=== PATIENT | female | born 1955 | race American Indian/Alaskan Native ===

== ENCOUNTER 2016-06-29 12:49 | Outpatient (CLI) | payer BC ==
--- NOTE | 2016-06-29 15:59 | Mammography Report ---
BILATERAL DIGITAL SCREENING MAMMOGRAM with CAD: 06/29/16 12:49:00 CLINICAL: Routine screening. COMPARISON:06/06/15 FINDINGS: The breasts are almost entirely fatty. No new mass, architectural distortion or suspicious calcifications. IMPRESSION: No mammographic evidence of malignancy. BI-RADS CATEGORY: 2 -- Benign RECOMMENDATION: Routine mammographic screening in one year. COMMENT: Patient follow-up letters are generated by our [employer] application.
== END 2016-06-29 12:50 | disposition home or self-care (01) ==
LOC: SPVWC 12:49
PROVIDERS: ATTEND Family Medicine
DX: Z12.31 Encounter for screening mammogram for malignant neoplasm of breast (principal)
CPT/HCPCS: 77067; G0202

== ENCOUNTER 2017-07-05 09:36 | Outpatient (CLI) | payer BC ==
--- NOTE | 2017-07-08 11:35 | Mammography Report ---
BILATERAL DIGITAL SCREENING MAMMOGRAM with CAD: 07/05/17 09:36:00 CLINICAL: Routine screening. COMPARISON:06/29/16 FINDINGS: The breasts are almost entirely fatty. No mass, architectural distortion or suspicious calcifications. IMPRESSION: No mammographic evidence of malignancy. BI-RADS CATEGORY: 2 -- Benign RECOMMENDATION: Routine mammographic screening in one year. COMMENT: Patient follow-up letters are generated by our [employer] application.
== END 2017-07-05 09:37 | disposition home or self-care (01) ==
LOC: SPVWC 09:36
PROVIDERS: ATTEND Family Medicine
DX: Z12.31 Encounter for screening mammogram for malignant neoplasm of breast (principal)
CPT/HCPCS: 77067

== ENCOUNTER 2018-07-07 09:18 | Outpatient (CLI) | payer BC ==
--- NOTE | 2018-07-07 16:19 | Mammography Report ---
BILATERAL DIGITAL SCREENING MAMMOGRAM with CAD: 07/07/18 09:18:00 CLINICAL: Routine screening. COMPARISON:07/05/17 FINDINGS: The breasts are almost entirely fatty. No mass, architectural distortion or suspicious calcifications. IMPRESSION: No mammographic evidence of malignancy. BI-RADS CATEGORY: 2 -- Benign RECOMMENDATION: Routine mammographic screening in one year. COMMENT: Patient follow-up letters are generated by our [employer] application.
== END 2018-07-07 09:19 | disposition home or self-care (01) ==
LOC: SPVWC 09:18
PROVIDERS: ATTEND Family Medicine
DX: Z12.31 Encounter for screening mammogram for malignant neoplasm of breast (principal)
CPT/HCPCS: 77067

== ENCOUNTER 2019-07-08 09:50 | Outpatient (CLI) | payer BC ==
--- NOTE | 2019-07-08 16:04 | Mammography Report ---
DIGITAL SCREENING MAMMOGRAM WITH CAD, 07/08/2019 INDICATION: Routine screening mammography. TECHNIQUE: Digital bilateral 2D mammography was obtained in the craniocaudal and mediolateral obliq ue projections. This examination was interpreted with the benefit of Computer-Aided Detection analysi s. COMPARISON: 07/07/2018 and 07/05/2017 FINDINGS: Breast Density: The breasts are almost entirely fatty. There is no evidence of dominant mass, suspicious calcifications or architectural distortion in eithe r breast. IMPRESSION: No mammographic evidence of malignancy. Follow up recommendation: Routine yearly BI-RADS Category 2: Benign. A "normal" or negative report should not discourage follow up or biopsy of a clinically significant f inding. A written summary of these findings will be mailed to the patient. The patient will be entered into a mammography reporting system which will generate a reminder letter for the patient's next appointmen t at the appropriate interval. The [employer] recommends yearly mammograms starting at age 40 and continuing as l josue as a woman is in good health. Breast MRI is recommended for women with an approximate 20-25% or greater lifetime risk of breast cancer, including women with a strong family history of breast or ova lianne cancer or who have been treated for Hodgkin's disease. Signer Name: Onel Bowen MD Signed: 07/08/2019 4:00 PM Workstation Name: [id number]
== END 2019-07-08 09:51 | disposition home or self-care (01) ==
LOC: SPVWC 09:50
PROVIDERS: ATTEND Family Medicine
DX: Z12.31 Encounter for screening mammogram for malignant neoplasm of breast (principal); N64.89 Other specified disorders of breast
CPT/HCPCS: 77067

== ENCOUNTER 2020-07-11 10:18 | Outpatient (CLI) | payer BC ==
--- NOTE | 2020-07-11 18:15 | Mammography Report ---
DIGITAL SCREENING MAMMOGRAM WITH CAD, 07/11/2020 CLINICAL INFORMATION / INDICATION: Routine screening mammography. SCREENING MAMMO TECHNIQUE: Digital bilateral 2D mammography was obtained in the craniocaudal and mediolateral obliqu e projections. This examination was interpreted with the benefit of Computer-Aided Detection analysis . COMPARISON: 11/28/2011 through 07/08/2019. FINDINGS: Breast Density: The breasts are almost entirely fatty. No dominant mass, suspicious calcifications, or architectural distortion in the left breast. A benign-appearing nodular density in the right upper outer quadrant posteriorly has not changed sinc e 2011. There are a few benign-appearing calcifications in the right breast. No new abnormality is se en. IMPRESSION: No mammographic evidence of malignancy. Follow up recommendation: Routine yearly BI-RADS Category 2: Benign. A "normal" or negative report should not discourage follow up or biopsy of a clinically significant f inding. A written summary of these findings will be mailed to the patient. The patient will be entered into a mammography reporting system which will generate a reminder letter for the patient's next appointmen t at the appropriate interval. The [employer] recommends yearly mammograms starting at age 40 and continuing as l josue as a woman is in good health. Breast MRI is recommended for women with an approximate 20-25% or greater lifetime risk of breast cancer, including women with a strong family history of breast or ova lianne cancer or who have been treated for Hodgkin's disease. Signer Name: Dariusz May MD Signed: 07/11/2020 6:11 PM Workstation Name: [id number]
== END 2020-07-11 10:19 | disposition home or self-care (01) ==
LOC: SPVWC 10:18
PROVIDERS: ATTEND Family Medicine
DX: Z12.31 Encounter for screening mammogram for malignant neoplasm of breast (principal)
CPT/HCPCS: 77067

== ENCOUNTER 2021-08-23 10:42 | Outpatient (CLI) | payer BC ==
--- NOTE | 2021-08-24 14:58 | Mammography Report ---
DIGITAL SCREENING MAMMOGRAM WITH CAD, 08/23/2021 CLINICAL INFORMATION / INDICATION: Routine screening mammography. TECHNIQUE: Digital bilateral 2D mammography was obtained in the craniocaudal and mediolateral obliqu e projections. This examination was interpreted with the benefit of Computer-Aided Detection analysis . COMPARISON: 07/11/2020, 07/08/2019 FINDINGS: Breast Density: The breasts are almost entirely fatty. No dominant mass, suspicious calcifications, or architectural distortion in either breast. There is an unchanged nodular density located posteriorly in the upper outer right breast. Benign rig ht breast calcifications are also unchanged. IMPRESSION: No mammographic evidence of malignancy. Follow up recommendation: Routine yearly BI-RADS Category 2: BENIGN. A "normal" or negative report should not discourage follow up or biopsy of a clinically significant f inding. A written summary of these findings will be mailed to the patient. The patient will be entered into a mammography reporting system which will generate a reminder letter for the patient's next appointmen t at the appropriate interval. The [employer] recommends yearly mammograms starting at age 40 and continuing as l josue as a woman is in good health. Breast MRI is recommended for women with an approximate 20-25% or greater lifetime risk of breast cancer, including women with a strong family history of breast or ova lianne cancer or who have been treated for Hodgkin's disease. Signer Name: Noé Cabral MD Signed: 08/24/2021 2:53 PM Workstation Name: [id number]
== END 2021-08-23 10:43 | disposition home or self-care (01) ==
LOC: SPVWC 10:42
PROVIDERS: ATTEND Family Medicine
DX: Z12.31 Encounter for screening mammogram for malignant neoplasm of breast (principal)
CPT/HCPCS: 77067